=== PATIENT | female | born 1935 | race Caucasian/White ===

== ENCOUNTER 2019-07-13 14:08 | Inpatient (IN) ==
--- NOTE | 2019-07-13 14:34 | Emergency Department Note ---
Entered by Ioana Raza acting as a scribe for Nigel Farmer DO History of Present Illness General Chief complaint: Cardiac Assessment Time Seen by Provider: 07/13/19 14:16 Source: patient History of Present Illness Onset (ago): hour(s) less than 1 Location: chest (tachycardia) Severity: similar to prior episodes Pain Consistency: + other (sudden) Quality: + other (tachycardia) Associated symptoms: + shortness of breath and + other (dizziness); no chest pain and no nausea/vomiting Treatments prior to arrival: other (Lopressor, supplemental oxygen) The patient is an 84 year old female presenting to the Emergency Department complaining of sudden tachycardia starting less than an hour RN CHARGE. The patients nurse reports that the patient was at [facility] getting a colonoscopy and went into A-fib. She states that the patient doesnt have a history of A-fib. She explains that the patient was given 2.5 mg Lopressor and supplemental oxygen via nasal cannula RN CHARGE. She notes that the patient doesnt normally use supplemental oxygen at home. The patient reports that she feels fine. She states that she has experienced these symptoms once before. She notes that she follows with Dr. Fernandez PCP. The patient denies shortness of breath, nausea, vomiting and chest pain. Home Medications Home Medications Medication Instructions Recorded Confirmed Type amlodipine [Norvasc] 5 mg PO DAILY 07/13/19 07/13/19 History atorvastatin 20 mg PO DAILY 07/13/19 07/13/19 History furosemide 20 mg PO DAILY 07/13/19 07/13/19 History losartan 100 mg PO DAILY 07/13/19 07/13/19 History metoprolol succinate 100 mg PO DAILY 07/13/19 07/13/19 History polyethylene glycol 3350 17 g PO DAILY 07/13/19 07/13/19 History Allergies Allergy/AdvReac Type Severity Reaction Status Date / Time Thiazides Allergy Intermediate Rash Unverified 07/13/19 15:15 Dyazide AdvReac Unknown LETHARGY Verified 08/30/10 14:43 hydrochlorothiazide AdvReac Unknown LETHARGY Verified 07/13/19 14:56 lisinopril AdvReac Unknown COUGH Verified 07/13/19 15:15 triamterene AdvReac Unknown LETHARGY Verified 07/13/19 14:56 Past Med/Surg History Medical History Dyslipidemia Hypertension Surgical History History of appendectomy History of total left knee replacement History of total right knee replacement Hx of cholecystectomy S/P URI (total abdominal hysterectomy) S/P tonsillectomy and adenoidectomy Family History Father Diabetes Mother Colorectal cancer Social History Communication Ability: Effective Security Monitor Required: No Beliefs That Will Affect Care: None Current Living Situation: Alone Other Information That Helps Us Care for You: No Feels Safe at Home: Yes Safety Concerns: Feels Safe At This Time Smoking Status: Never smoker Do You Dip or Chew Tobacco: No ; Second Hand Exposure: No ; Tobacco Cessation Education Requested by Patient: No Hx Alcohol Use: No Hx Substance Use: No Review of Systems See HPI for pertinent positives & negatives. and A total of 10 systems reviewed and were otherwise negative Physical Exam Vital Signs Vital Signs - 24 hr 07/13/19 14:03 07/13/19 14:17 07/13/19 14:19 Temperature Temperature Source Pulse Rate 77 96 H Pulse Rate [Apical] Pulse Rate from SpO2 Sensor 103 H 98 H Pulse Rhythm Respiratory Rate 20 21 Respiratory Effort / Characteristics Non-Labored Spontaneous Respiratory Depth Normal Respiratory Pattern Blood Pressure 124/90 Blood Pressure [Right Arm] Blood Pressure Mean 108 Blood Pressure Mean [Right Arm] Blood Pressure Position [Right Arm] Pulse Oximetry 96 92 95 Oxygen Delivery Method Nasal Cannula Oxygen Flow Rate 2 Sepsis Recent Fever Within 48 Hours Sepsis New/Unexplained Change in Mental Status Sepsis Action Taken by Nursing 07/13/19 14:23 07/13/19 14:31 07/13/19 15:00 Temperature 36.6 C Temperature Source Oral Pulse Rate 98 H 95 H 101 H Pulse Rate [Apical] Pulse Rate from SpO2 Sensor 99 H 113 H Pulse Rhythm Irregular Respiratory Rate 20 21 22 Respiratory Effort / Characteristics Non-Labored Respiratory Depth Normal Respiratory Pattern Regular Blood Pressure 124/90 125/64 Blood Pressure [Right Arm] Blood Pressure Mean 101 98 Blood Pressure Mean [Right Arm] Blood Pressure Position [Right Arm] Pulse Oximetry 96 95 92 Oxygen Delivery Method Nasal Cannula Oxygen Flow Rate 2 Sepsis Recent Fever Within 48 Hours No Sepsis New/Unexplained Change in Mental Status No Sepsis Action Taken by Nursing No Action Required 07/13/19 15:17 07/13/19 15:22 07/13/19 16:00 Temperature Temperature Source Pulse Rate 87 85 Pulse Rate [Apical] 98 H Pulse Rate from SpO2 Sensor 90 Pulse Rhythm Respiratory Rate 26 H 20 18 Respiratory Effort / Characteristics Non-Labored Spontaneous Respiratory Depth Normal Respiratory Pattern Regular Blood Pressure 136/82 154/109 H Blood Pressure [Right Arm] 136/82 Blood Pressure Mean 120 133 Blood Pressure Mean [Right Arm] 100 Blood Pressure Position [Right Arm] Sitting Pulse Oximetry 92 93 Oxygen Delivery Method Room Air Oxygen Flow Rate Sepsis Recent Fever Within 48 Hours Sepsis New/Unexplained Change in Mental Status Sepsis Action Taken by Nursing 07/13/19 16:01 Temperature Temperature Source Pulse Rate 91 H Pulse Rate [Apical] Pulse Rate from SpO2 Sensor 105 H Pulse Rhythm Respiratory Rate 21 Respiratory Effort / Characteristics Respiratory Depth Respiratory Pattern Blood Pressure Blood Pressure [Right Arm] Blood Pressure Mean Blood Pressure Mean [Right Arm] Blood Pressure Position [Right Arm] Pulse Oximetry 93 Oxygen Delivery Method Room Air Oxygen Flow Rate Sepsis Recent Fever Within 48 Hours Sepsis New/Unexplained Change in Mental Status Sepsis Action Taken by Nursing GENERAL: The patient is awake and alert. She is not anxious appearing overall comfortable. EYES: The conjunctivae are clear. The pupils are round and reactive. EARS, NOSE, MOUTH AND THROAT: The nose is without any evidence of any deformity. Mucous membranes are moist. Tongue is midline. NECK: The neck is nontender and supple. RESPIRATORY: Diminished breath sounds noted at both bases. There is no tachypnea or conversational dyspnea. CARDIOVASCULAR: Irregular rhythm was noted to auscultation. There is no definite murmur noted. GASTROINTESTINAL: The abdomen is soft. Abdomen is nontender. MUSCULOSKELETAL/EXTREMITIES: There is no evidence of gross deformity full range of motion is noted in the hips and shoulders. SKIN: There is no obvious evidence of any rash. Venous stasis changes were noted in both feet. There is pedal edema bilaterally. NEUROLOGIC: Patient is awake alert and oriented x3. Course Course 1419: The patient was evaluated in room C12B, and a complete history and physical examination were performed. 1627: I updated the patient at this time. 1632: I discussed the patients case with Joanne Dickens PA-C. Dr. Dylan Herreraer hospitalist will evaluate the patient for further management. Administered Medications Heparin Sodium/Dextrose (Heparin Sodium/Dextrose) 25,000 units in 500 mls @ 27 mls/hr IV .[id number] [facility]; Protocol Stop: 08/12/19 19:59 Last Admin: 07/13/19 20:13 Dose: 1,350 units/hr, 27 mls/hr Documented by: [id number] Cosigned by: [id number] Sodium Chloride (Nss 1000ml) 1,000 mls @ 80 mls/hr IV .[id number] [facility] Stop: 07/14/19 07:29 Last Admin: 07/13/19 20:13 Dose: 80 mls/hr Documented by: [id number] Warfarin Sodium (Coumadin) 5 mg PO DAILY@1600 CORY Stop: 08/12/19 18:59 Last Admin: 07/13/19 20:15 Dose: 5 mg Documented by: [id number] Discontinued Medications Metoprolol Tartrate (Lopressor) 50 mg PO ONE ONE Stop: 07/13/19 19:01 Last Admin: 07/13/19 20:14 Dose: 50 mg Documented by: [id number] Metoprolol Tartrate (Lopressor) 5 mg IV ONE ONE Stop: 07/13/19 19:16 Last Admin: 07/13/19 20:12 Dose: Not Given Documented by: [id number] Medical Decision Making Differential Diagnosis Differential diagnosis: Etiologies such as premature contractions, electrolyte abnormality, cardiac dysrhythmia, thyroid dysfunction, pulmonary embolism, infection, gastrointestinal, as well as others were entertained. Medical Records Attestation: I reviewed the patient's medical records. Home Medications Current Medication List: was personally reviewed by me Laboratory Data Attestation: I reviewed the patient's lab results. Result diagrams: 07/13/19 15:17 07/13/19 15:17 Lab Results 07/13/19 07/13/19 07/13/19 Range/Units 15:17 15:17 15:17 WBC 8.18 (4.8-10.8) K/uL RBC 5.13 (4.2-5.4) M/uL Hgb 16.3 H (12.0-16.0) g/dL Hct 49.3 H (37-47) % MCV 96.1 (80-100) fL MCH 31.8 (25-34) pg MCHC 33.1 (32-36) g/dL RDW Std Deviation 48.5 H (36.4-46.3) fL RDW Coeff of Aaron 13.7 (11.5-14.5) % Plt Count 225 (130-400) K/uL MPV 9.9 (7.4-10.4) fL Immature Gran % (Auto) 0.1 % Neut % (Auto) 50.0 % Lymph % (Auto) 38.6 % [place] % (Auto) 9.5 % Eos % (Auto) 1.7 % Baso % (Auto) 0.1 % Immature Gran # (Auto) 0.01 (0.00-0.02) K/uL Neut # (Auto) 4.08 (1.4-6.5) K/uL Lymph # (Auto) 3.16 (1.2-3.4) K/uL [place] # (Auto) 0.78 H (0.11-0.59) K/uL Eos # (Auto) 0.14 (0-0.5) K/uL Baso # (Auto) 0.01 (0-0.2) K/uL PT 10.1 (9.0-12.0) Seconds INR 1.0 (0.9-1.1) APTT 23.8 (21.0-31.0) Seconds PTT Ratio 0.9 Sodium 142 (136-145) mmol/L Potassium 3.9 (3.5-5.1) mmol/L Chloride 109 H (98-107) mmol/L Carbon Dioxide 29 (21-32) mmol/L Anion Gap 4.0 (3-11) BUN 10 (7-18) mg/dl Creatinine 0.77 (0.6-1.2) mg/dl Est Cr Clr Drug Dosing 68.4 ml/min Est GFR ( Amer) 82.8 Est GFR (Non-Af Amer) 71.4 BUN/Creatinine Ratio 13.3 (10-20) Glucose 114 H (70-99) mg/dl Calcium 8.8 (8.5-10.1) mg/dl Magnesium 2.3 (1.8-2.4) mg/dl Total Bilirubin 0.5 (0.2-1) mg/dl AST 23 (15-37) U/L ALT 31 (12-78) U/L Alkaline Phosphatase 99 (45-117) U/L Troponin I < 0.015 (0-0.045) ng/ml Total Protein 7.9 (6.4-8.2) gm/dl Albumin 3.8 (3.4-5.0) gm/dl Globulin 4.1 H (2.5-4.0) gm/dl Albumin/Globulin Ratio 0.9 (0.9-2) TSH 3.130 (0.300-4.500) uIu/ml Imaging Data Radiologist's Impression: Radiology results as stated below per my review and the radiologist's interpretation: XR chest 1V portable CLINICAL HISTORY: weakness COMPARISON STUDY: No previous studies for comparison. FINDINGS: Moderate cardiac enlargement. Diaphragms are smooth. Lungs are clear. IMPRESSION: Cardiomegaly. Otherwise negative study. The above report was generated using voice recognition software. It may contain grammatical, syntax or spelling errors. Electronically signed by: Casey Zuñiga M.D. 07/13/2019 3:01 PM ECG Data Attestation: I personally reviewed and interpreted this ECG as follows: Indication: + tachycardia Rate (beats per minute): 97 Rhythm: + atrial fibrillation ECG ST segments: no ST depression and no ST elevation ECG Findings: no PVCs Comparison ECG Date: no prior available Blood Pressure Blood Pressure Findings: Elevated blood pressure Blood Pressure Disposition: further management by hospitalist NIKOLAS Narrative The patient is an 84-year-old female who presented to the emergency department for an evaluation palpitations. The patient had a prep for colonoscopy last evening. She had a colonoscopy today and while she was in the recovery phase started having palpitations and was found to have rapid atrial fibrillation. The patient does state that she has a history of similar episodes in the past. I discussed the patient's laboratory and radiographic studies with her. She was treated with beta-blockers prior to arrival. Her pulse rate was significantly improved. She continued to have hypoxia and was placed on submental oxygen. She did respond well to supplemental oxygen. She has no chest pain. She denies having any swelling in the extremities compared to previous. The patient was reevaluated multiple times. I discussed the patient's condition with the [facility] hospitalist group. They have agreed to evaluate the patient in the emergency department for further management disposition. Is possible the patient may require further inpatient work-up and then consideration for cardioversion. Impression & Plan Atrial fibrillation with rapid ventricular response, Hypoxia Discharge Plan Visit Data *Final* Discharge Date/Time: 07/13/19 18:25 Chief Complaint: Cardiac Assessment ED Provider: Nigel Farmer Discharge Problem: Atrial fibrillation with rapid ventricular response, Hypoxia Patient Disposition: Admitted As Inpatient Discharge Instructions Interventions: ED Discharge Assessment Last Done: 07/13/19 18:25 The scribe's documentation has been prepared under my direction and personally reviewed by me in its entirety. I confirm that the note above accurately reflects all work, treatment, procedures, and medical decision making performed by me.
--- NOTE | 2019-07-13 15:02 | XRay Report ---
XR chest 1V portable CLINICAL HISTORY: weakness COMPARISON STUDY: No previous studies for comparison. FINDINGS: Moderate cardiac enlargement. Diaphragms are smooth. Lungs are clear. IMPRESSION: Cardiomegaly. Otherwise negative study. The above report was generated using voice recognition software. It may contain grammatical, syntax or spelling errors. Electronically signed by: Casey Zuñiga M.D. 07/13/2019 3:01 PM
[2019-07-13 15:34] LABS: Basophils # (auto) 0.01 K/uL (0-0.2); Basophils % (auto) 0.1 %; Eosinophils # (auto) 0.14 K/uL (0-0.5); Eosinophils % (auto) 1.7 %; Hematocrit (blood only) 49.3 % (37-47); Hemoglobin 16.3 g/dL (12.0-16.0); Immature Granulocytes # (auto) 0.01 K/uL (0.00-0.02); Immature Granulocytes % (auto) 0.1 %; Lymphocytes # (auto) 3.16 K/uL (1.2-3.4); Lymphocytes % (auto) 38.6 %; Mean Corpuscular Hemoglobin 31.8 pg (25-34); Mean Corpuscular Hgb Conc 33.1 g/dL (32-36); Mean Corpuscular Volume 96.1 fL (80-100); Mean Platelet Volume 9.9 fL (7.4-10.4); Monocytes # (auto) 0.78 K/uL (0.11-0.59); Monocytes % (auto) 9.5 %; Neutrophils # (auto) 4.08 K/uL (1.4-6.5); Platelet Count 225 K/uL (130-400); RDW Coefficient of Variation 13.7 % (11.5-14.5); RDW Standard Deviation 48.5 fL (36.4-46.3); Red Blood Count 5.13 M/uL (4.2-5.4); White Blood Count 8.18 K/uL (4.8-10.8)
[2019-07-13 15:51] LABS: Partial Thromboplastin Ratio 0.9; Partial Thromboplastin Time 23.8 Seconds (21.0-31.0); Prothrombin Time 10.1 Seconds (9.0-12.0)
[2019-07-13 15:55] LABS: Alanine Aminotransferase 31 U/L (12-78); Albumin Level 3.8 gm/dl (3.4-5.0); Aspartate Aminotransferase 23 U/L (15-37); BUN Creatinine Ratio 13.3 (10-20); Blood Urea Nitrogen 10 mg/dl (7-18); Calcium 8.8 mg/dl (8.5-10.1); Carbon Dioxide 29 mmol/L (21-32); Chloride 109 mmol/L (98-107); Creatinine Clr Calc Pharmacy 68.4 ml/min; Est GFR (African American) 82.8; Est GFR (Non-African American) 71.4; Glucose 114 mg/dl (70-99); Magnesium 2.3 mg/dl (1.8-2.4); Potassium 3.9 mmol/L (3.5-5.1); Sodium 142 mmol/L (136-145)
[2019-07-13 16:06] LABS: Albumin Globulin Ratio 0.9 (0.9-2); Alkaline Phosphatase 99 U/L (45-117); Bilirubin,Total 0.5 mg/dl (0.2-1); Globulin 4.1 gm/dl (2.5-4.0); Total Protein 7.9 gm/dl (6.4-8.2); Troponin I < 0.015 ng/ml (0-0.045)
--- NOTE | 2019-07-13 17:59 | History & Physical Report ---
Date of Service July 13, 2019 Assessment & Plan (1) New onset atrial fibrillation: -Admit to telemetry -Patient sent to the ED from [facility] endoscopy clinic for evaluation of atrial fibrillation with RVR that developed during routine colonoscopy -Patient received metoprolol 2.5 mg IV with improvement in heart rate; heart rate currently 90s to low 100s -A. fib may have been triggered by some mild dehydration from colonoscopy prep (will hold home Lasix and give gentle IVF) or anesthesia -At home, patient takes metoprolol succinate 100 mg daily (has not missed any doses); will give an additional 50 mg tonight and start 75 mg twice daily tomorrow -[id number] score 4; will start IV heparin with Coumadin bridge -Serial cardiac enzymes, resting echo -Cardiology consult (2) Hypertension: -BP controlled -Metoprolol changes as above -Continue losartan and amlodipine (3) Dyslipidemia: -Continue statin (4) DVT prophylaxis: -On IV heparin with Coumadin bridge History of Present Illness Chief Complaint: Atrial fibrillation Primary Care Provider: Demetrice Fernandez MD 84-year-old female who was sent to the ED from [facility] endoscopy clinic for evaluation of atrial fibrillation that developed during routine colonoscopy today. During colonoscopy, patient developed atrial fibrillation with RVR. She was asymptomatic. She received metoprolol 2.5 mg IV with improvement in heart rate. Patient was then sent to the ER for further evaluation via EMS. Patient currently reports she is feeling well. Denies any other recent illnesses, fevers, chills. No chest pain or palpitations. Denies shortness of breath. No lightheadedness, dizziness, diaphoresis, syncopal events. No abdominal pain, nausea, vomiting, diarrhea. She denies any urinary symptoms. In the ED, patient remains in atrial fibrillation with heart rates in the 90s to low 100s. Labs are unremarkable. Allergies Allergy/AdvReac Type Severity Reaction Status Date / Time Thiazides Allergy Intermediate Rash Unverified 07/13/19 15:15 Dyazide AdvReac Unknown LETHARGY Verified 08/30/10 14:43 hydrochlorothiazide AdvReac Unknown LETHARGY Verified 07/13/19 14:56 lisinopril AdvReac Unknown COUGH Verified 07/13/19 15:15 triamterene AdvReac Unknown LETHARGY Verified 07/13/19 14:56 Home Medications Home Medications Medication Instructions Recorded Confirmed Type amlodipine [Norvasc] 5 mg PO DAILY 07/13/19 07/13/19 History atorvastatin 20 mg PO DAILY 07/13/19 07/13/19 History furosemide 20 mg PO DAILY 07/13/19 07/13/19 History losartan 100 mg PO DAILY 07/13/19 07/13/19 History metoprolol succinate 100 mg PO DAILY 07/13/19 07/13/19 History polyethylene glycol 3350 17 g PO DAILY 07/13/19 07/13/19 History Past Med/Surg History Medical History Dyslipidemia Hypertension Surgical History History of appendectomy History of total left knee replacement History of total right knee replacement Hx of cholecystectomy S/P URI (total abdominal hysterectomy) S/P tonsillectomy and adenoidectomy Family History Father Diabetes Mother Colorectal cancer Social History Feels Safe at Home: Yes Smoking Status: Never smoker Hx Alcohol Use: No Review of Systems Review of Systems: ROS per HPI, all other systems reviewed and negative Physical Exam Constitutional: WD/WN, vitals as above Eyes: PERRL, conjunctivae normal, anicteric sclerae ENMT: external ear and nose normal, oropharynx normal Respiratory: normal respiratory effort, lungs clear to auscultation Cardiovascular: Rate/Rhythm: regular rate and + irregularly irregular Vessels: normal peripheral pulses Extremities: no edema Gastrointestinal (Abdomen): normal bowel sounds, soft, nontender, no hepatosplenomegaly Musculoskeletal: no cyanosis or clubbing, extremities motor strength 5/5 Skin: no rashes, warm and dry Neurologic: PERRL, EOMI, accommodation nl, no face palsy, no dysarthria Psychiatric: A+Ox3, euthymic affect Results & Data Vital Signs (Past 12 Hours) Vital Signs Temp Pulse Pulse Resp BP BP Pulse Ox 07/13/19 17:01 105 H 20 124/96 95 07/13/19 16:01 91 H 21 82 L 07/13/19 16:00 85 18 154/109 H 93 07/13/19 15:22 98 H 20 136/82 92 07/13/19 15:17 87 26 H 136/82 07/13/19 15:00 101 H 22 92 07/13/19 14:31 95 H 21 125/64 95 07/13/19 14:23 36.6 C 98 H 20 124/90 96 07/13/19 14:19 96 H 21 95 07/13/19 14:17 77 20 124/90 92 07/13/19 14:03 96 Laboratory Results Short CBC 07/13/19 Range/Units 15:17 WBC 8.18 (4.8-10.8) K/uL Hgb 16.3 H (12.0-16.0) g/dL Hct 49.3 H (37-47) % Plt Count 225 (130-400) K/uL BMP 07/13/19 15:17 Sodium 142 Potassium 3.9 Chloride 109 H Carbon Dioxide 29 BUN 10 Creatinine 0.77 Glucose 114 H Calcium 8.8 Cardiac Enzymes 07/13/19 Range/Units 15:17 Troponin I < 0.015 (0-0.045) ng/ml Liver Function 07/13/19 Range/Units 15:17 Total Bilirubin 0.5 (0.2-1) mg/dl AST 23 (15-37) U/L ALT 31 (12-78) U/L Alkaline Phosphatase 99 (45-117) U/L Albumin 3.8 (3.4-5.0) gm/dl Diagnostic Findings CXR IMPRESSION: Cardiomegaly. Otherwise negative study. Code Status & VTE Plan Code Status Patient is a full code without invasive airway as per my discussion with her. VTE Prophylaxis Plan VTE Prophylaxis will be ordered: Yes Supervising Physician Co-Signing Physician Notes I saw this patient with the Nurse Practitioner, I participated in the history, physical, review of systems, and physical exam. I reviewed the medications with the patient and the Nurse Practitioner and helped reconcile the medications. I helped take a detailed family and social history as well. I formulated the asse ssment and plan personally with the Nurse Practitioner went over it with the patient. ROS-No Headache, No Visual Changes, No Nausea, No Vomiting, No Fever, No Chills, No Neck Pain or Stiffness, No Chest Pain, No Palpitations, No SOB, No PONCE, No Cough, No Sputum, No Wheezing, No Abdominal Pain, No Diarrhea, No Hematemesis, No Hemoptysis, No Unexpected Weight Loss, No Flank pain, No Melena, No Hematochezia, No Frequency, No Urgency, No Burning, No Hematuria, No Rashes, No Diaphoresis. Appetite is Normal Physical Exam Gen-AAO x 3, NAD, Afebrile, obese Head-NCAT, EOMI, PERRLA, Anicteric Sclera, No Posterior Pharyngeal Erythema Neck-Supple, No JVD, No Thyromegaly, No Masses, No LAD, No Bruits Lungs-Clear to Auscultation Bilaterally, No Rales, No Rhonchi, No Wheezing, No Crepitus Chest-Irreg/Irreg, No S4, +S1, +S2, No S3, No Murmurs, No Rubs, No Gallops, + Ectopy Abdomen-Soft, Bowel Sounds Present, Non Tender, Non Distended, No Hepatomegaly, No Splenomegaly, No Palpable Masses, No Rebound, No Rigidity, No Guarding Musculoskeletal-Full Range of Motion Bilaterally, No CVAT Extremities-No Cyanosis, No Clubbing, No Edema Nuero-Cranial Nerves II-XII grossly intact, Motor WNL, DTRs WNL, Strength WNL, Non Focal Psych-Normal Mood
[2019-07-13] MEDS ORDERED: ACETAMINOPHEN 325 MG TAB PO PRN (18:45)
[2019-07-13] MEDS ORDERED: METOPROLOL TARTRATE 1 MG/ML VIAL IV PRN (18:45)
[2019-07-13] MEDS ORDERED: SODIUM CHLORIDE 0.9% 1000ML 1,000 ML IV SCH (19:00)
[2019-07-13] MEDS ORDERED: Heparin IV Standard *NO* Bolus IV SCH (19:00)
[2019-07-13] MEDS ORDERED: METOPROLOL TARTRATE 50 MG TAB PO ONE (19:00)
[2019-07-13] MEDS ORDERED: METOPROLOL TARTRATE 1 MG/ML VIAL IV ONE (19:15)
[2019-07-13] MEDS: HEPARIN SODIUM/DEXTROSE 25,000 UNITS/500 ML BAG IV SCH (20:13)
[2019-07-13] MEDS: WARFARIN SOD 5 MG TAB PO SCH (20:15)
[2019-07-14 02:34] LABS: Hematocrit (blood only) 43.8 % (37-47); Mean Corpuscular Hemoglobin 31.3 pg (25-34); Mean Corpuscular Volume 97.8 fL (80-100); Mean Platelet Volume 9.7 fL (7.4-10.4); Platelet Count 192 K/uL (130-400); RDW Coefficient of Variation 13.8 % (11.5-14.5); RDW Standard Deviation 49.8 fL (36.4-46.3); Red Blood Count 4.48 M/uL (4.2-5.4); White Blood Count 7.27 K/uL (4.8-10.8)
[2019-07-14 02:47] LABS: Partial Thromboplastin Ratio 1.6; Partial Thromboplastin Time 43.8 Seconds (21.0-31.0); Prothrombin Time 10.6 Seconds (9.0-12.0)
[2019-07-14 02:52] LABS: Anion Gap 0 (3-11); BUN Creatinine Ratio 14.4 (10-20); Blood Urea Nitrogen 13 mg/dl (7-18); Calcium 8.3 mg/dl (8.5-10.1); Carbon Dioxide 33 mmol/L (21-32); Chloride 109 mmol/L (98-107); Creatinine Clr Calc Pharmacy 55.7 ml/min; Est GFR (African American) 66.7; Est GFR (Non-African American) 57.6; Glucose 100 mg/dl (70-99); Potassium 4.1 mmol/L (3.5-5.1); Sodium 142 mmol/L (136-145)
[2019-07-14 02:56] LABS: Troponin I < 0.015 ng/ml (0-0.045)
[2019-07-14] MEDS ORDERED: HEPARIN IV BOLUS 3,000 UNITS in SYRINGE 0 ML IV ONE (03:17)
[2019-07-14] MEDS: AMLODIPINE BESYLATE 5 MG TAB PO SCH (08:01)
[2019-07-14] MEDS: LOSARTAN POTASSIUM 50 MG TAB PO SCH (08:01)
[2019-07-14] MEDS: ATORVASTATIN 20 MG TAB PO SCH (08:01)
[2019-07-14] MEDS ORDERED: PERFLUTREN LIPID MICROSPHERE (DEFINITY) IV ONE (08:04)
[2019-07-14] MEDS ORDERED: METOPROLOL TARTRATE 25 MG TAB PO SCH (09:00)
--- NOTE | 2019-07-14 10:46 | Hospitalist Progress Note ---
Date of Service July 14, 2019 Assessment & Plan (1) New onset atrial fibrillation: -Back in NSR -Patient sent to the ED from [facility] endoscopy clinic for evaluation of atrial fibrillation with RVR that developed during routine colonoscopy -Patient received metoprolol 2.5 mg IV with improvement in heart rate; heart rate currently 90s to low 100s -A. fib may have been triggered by some mild dehydration from colonoscopy prep (will hold home Lasix and give gentle IVF) or anesthesia -At home, patient takes metoprolol succinate 100 mg daily (has not missed any doses); will give an additional 50 mg tonight and start 75 mg twice daily tomorrow -[id number] score 4; will start IV heparin with Coumadin bridge -Serial cardiac enzymes, resting echo -Cardiology consult pending, likely DC later today (2) Hypertension: -BP controlled -Metoprolol changes as above -Continue losartan and amlodipine (3) Dyslipidemia: -Continue statin (4) DVT prophylaxis: On IV heparin with Coumadin bridge ROS-No Headache, No Visual Changes, No Nausea, No Vomiting, No Fever, No Chills, No Neck Pain or Stiffness, No Chest Pain, No Palpitations, No SOB, No PONCE, No Cough, No Sputum, No Wheezing, No Abdominal Pain, No Diarrhea, No Hematemesis, No Hemoptysis, No Unexpected Weight Loss, No Flank pain, No Melena, No Hematochezia, No Frequency, No Urgency, No Burning, No Hematuria, No Rashes, No Diaphoresis. Appetite is Normal Physical Exam Gen-AAO x 3, NAD, Afebrile Head-NCAT, EOMI, PERRLA, Anicteric Sclera, No Posterior Pharyngeal Erythema Neck-Supple, No JVD, No Thyromegaly, No Masses, No LAD, No Bruits Lungs-Clear to Auscultation Bilaterally, No Rales, No Rhonchi, No Wheezing, No Crepitus Chest-No S4, +S1, +S2, No S3, No Murmurs, No Rubs, No Gallops, No Ectopy Abdomen-Soft, Bowel Sounds Present, Non Tender, Non Distended, No Hepatomegaly, No Splenomegaly, No Palpable Masses, No Rebound, No Rigidity, No Guarding Musculoskeletal-Full Range of Motion Bilaterally, No CVAT Extremities-No Cyanosis, No Clubbing, No Edema Nuero-Cranial Nerves II-XII grossly intact, Motor WNL, DTRs WNL, Strength WNL, Non Focal Psych-Normal Mood Results & Data Vital Signs (Past 12 Hours) Vital Signs Temp Pulse Pulse Pulse Resp BP Pulse Ox 07/14/19 08:03 94 07/14/19 07:50 36.7 C 53 L 18 142/65 H 85 L 07/14/19 04:36 37.3 C 99 H 20 127/77 96 07/13/19 23:45 103 H
[2019-07-14 10:51] LABS: Partial Thromboplastin Ratio 2.8
[2019-07-14 10:55] LABS: Partial Thromboplastin Time 75.8 Seconds (21.0-31.0)
[2019-07-14 11:25] LABS: Appearance Urine Cloudy (Clear); Bacteria Urine Automated Negative (Negative); Bilirubin Urine Negative (Negative); Blood Urine Negative (Negative); Color Urine Dark Yellow; Epithelial Cell Urine Auto >30 /lpf (0-5); Glucose Urine UA Negative (Negative); Ketones Urine Negative (Negative); Leukocyte Esterase Urine Negative (Negative); Nitrite Urine Negative (Negative); Protein Urine Negative (Negative); RBC Urine Automated 0-4 /hpf (0-4); Urobilinogen Urine Negative (Negative)
--- NOTE | 2019-07-14 11:49 | Cardiology Consultation ---
Date of Consultation July 14, 2019 History of Present Illness Attending Physician: Jc Whelan DO Allergies Allergy/AdvReac Type Severity Reaction Status Date / Time Thiazides Allergy Intermediate Rash Unverified 07/13/19 15:15 Dyazide AdvReac Unknown LETHARGY Verified 08/30/10 14:43 hydrochlorothiazide AdvReac Unknown LETHARGY Verified 07/13/19 14:56 lisinopril AdvReac Unknown COUGH Verified 07/13/19 15:15 triamterene AdvReac Unknown LETHARGY Verified 07/13/19 14:56 Home Medications Home Medications Medication Instructions Recorded Confirmed Type amlodipine [Norvasc] 5 mg PO DAILY 07/13/19 07/13/19 History atorvastatin 20 mg PO DAILY 07/13/19 07/13/19 History furosemide 20 mg PO DAILY 07/13/19 07/13/19 History losartan 100 mg PO DAILY 07/13/19 07/13/19 History metoprolol succinate 100 mg PO DAILY 07/13/19 07/13/19 History polyethylene glycol 3350 17 g PO DAILY 07/13/19 07/13/19 History Patient History Medical History Dyslipidemia Hypertension Surgical History History of appendectomy History of total left knee replacement History of total right knee replacement Hx of cholecystectomy S/P URI (total abdominal hysterectomy) S/P tonsillectomy and adenoidectomy Family History Father Diabetes Mother Colorectal cancer Social History Communication Ability: Effective 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
[2019-07-14] MEDS: HEPARIN SODIUM/DEXTROSE 25,000 UNITS/500 ML BAG IV SCH (13:46)
--- NOTE | 2019-07-14 15:13 | Cardiology Consultation ---
Date of Consultation July 14, 2019 Assessment & Plan (1) New onset atrial fibrillation: Patient presented with new onset atrial fibrillation occurring during recent outpatient procedure following colonoscopy prep. Patient relatively asymptomatic not aware of tachycardia palpitation or associated complaints. Notes no prior history of arrhythmias per her description she does carry an elevated chads vas 2 score of at least 4. Patient spontaneously converted to sinus rhythm earlier this morning after additional dosing of beta-bhargav lower with associated significant sinus pauses greater than 6 seconds Recommendations continue IV heparin with elevated chads vas 2 score will require chronic anticoagulation either warfarin or Eliquis Hold beta-bhargav with likely resumption in a.m. Maintain telemetry additional overnight (2) Hypertension: (3) Sinus pause: Likely secondary to additional beta-blockers and postconversion pause however pauses lengths concerning. Maintain telemetry overnight History of Present Illness Reason for Consultation: Atrial fibrillation with with postconversion pause Requesting Physician: Dr. Bedolla Attending Physician: Jc Whelan, DO History of Present Illness Patient is an 84-year-old female without prior established cardiac history per patient who is underlying medical problems include 1. Hypertension 2. Hyperlipidemia on therapy 3. Borderline hyperglycemia Patient presents having undergone colonoscopy yesterday for routine surveillance and having lapsed into atrial fibrillation during the procedure. She received additional doses of IV metoprolol 2.5 mg as well as oral dosing last night of 50 mg of metoprolol tartrate. Patient uses takes it metoprolol succinate 100 mg every morning and was compliant with her dosing prior to her colonoscopy. This morning early patient spontaneously converted to sinus rhythm however postconversion had a significant pause of greater than 6 seconds. Patient is referred now for further evaluation. Currently notes no acute complaints denies prior history of tachyarrhythmias palpitations TIA or stroke. Notes no bleeding difficulties melena medication dysuria hematuria. Blood pressures are usually well controlled. Denies chest pain shortness of breath orthopnea PND peripheral edema. No prior history of syncope or lightheadedness. Is active to a modest level about her home without specific limitation. Allergies Allergy/AdvReac Type Severity Reaction Status Date / Time Thiazides Allergy Intermediate Rash Unverified 07/13/19 15:15 Dyazide AdvReac Unknown LETHARGY Verified 08/30/10 14:43 hydrochlorothiazide AdvReac Unknown LETHARGY Verified 07/13/19 14:56 lisinopril AdvReac Unknown COUGH Verified 07/13/19 15:15 triamterene AdvReac Unknown LETHARGY Verified 07/13/19 14:56 Home Medications Home Medications Medication Instructions Recorded Confirmed Type amlodipine [Norvasc] 5 mg PO DAILY 07/13/19 07/13/19 History atorvastatin 20 mg PO DAILY 07/13/19 07/13/19 History furosemide 20 mg PO DAILY 07/13/19 07/13/19 History losartan 100 mg PO DAILY 07/13/19 07/13/19 History metoprolol succinate 100 mg PO DAILY 07/13/19 07/13/19 History polyethylene glycol 3350 17 g PO DAILY 07/13/19 07/13/19 History Patient History Medical History Dyslipidemia Hypertension Surgical History History of appendectomy History of total left knee replacement History of total right knee replacement Hx of cholecystectomy S/P URI (total abdominal hysterectomy) S/P tonsillectomy and adenoidectomy Family History Father Diabetes Mother Colorectal cancer Social History Communication Ability: Effective 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 Beliefs That Will Affect Care: None Current Living Situation: Alone Other Information That Helps Us Care for You: No Feels Safe at Home: Yes Safety Concerns: Feels Safe At This Time Smoking Status: Never smoker Do You Dip or Chew Tobacco: No ; Second Hand Exposure: No ; Tobacco Cessation Education Requested by Patient: No Hx Alcohol Use: No Hx Substance Use: No Review of Systems Review of Systems: All systems reviewed & are unremarkable except as noted in HPI & below Physical Exam Constitutional: WD/WN, vitals as above + obese Eyes: PERRL, conjunctivae normal, anicteric sclerae ENMT: external ear and nose normal, oropharynx normal Neck: trachea midline, no thyromegaly Respiratory: normal respiratory effort, lungs clear to auscultation Cardiovascular: Rate/Rhythm: regular rate and regular rhythm Heart Sounds: normal S1 and normal S2; no gallop and no murmur Palpation: normal PMI Vessels: normal carotid upstroke and radial pulses present; no JVD and no carotid bruit Extremities: no edema Gastrointestinal (Abdomen): normal bowel sounds, soft, nontender, no hepatosplenomegaly Musculoskeletal: no cyanosis or clubbing, extremities motor strength 5/5 Mild stasis changes lower extremity Skin: no rashes, warm and dry Neurologic: PERRL, EOMI, accommodation nl, no face palsy, no dysarthria Psychiatric: A+Ox3, euthymic affect Results & Data Vital Signs (Past 12 Hours) Vital Signs Temp Pulse Pulse Resp BP Pulse Ox 07/14/19 11:39 37.0 C 69 18 138/69 93 07/14/19 08:03 94 07/14/19 07:50 36.7 C 53 L 18 142/65 H 85 L 07/14/19 04:36 37.3 C 99 H 20 127/77 96
[2019-07-14] MEDS: WARFARIN SOD 5 MG TAB PO SCH (16:52)
[2019-07-14 18:52] LABS: Partial Thromboplastin Ratio 2.4
[2019-07-14 19:03] LABS: Partial Thromboplastin Time 63.9 Seconds (21.0-31.0)
[2019-07-15 06:29] LABS: Partial Thromboplastin Ratio 1.8
[2019-07-15 06:32] LABS: Partial Thromboplastin Time 50.1 Seconds (21.0-31.0)
[2019-07-15] MEDS: HEPARIN SODIUM/DEXTROSE 25,000 UNITS/500 ML BAG IV SCH (08:40)
[2019-07-15] MEDS: ATORVASTATIN 20 MG TAB PO SCH (08:59)
[2019-07-15] MEDS: AMLODIPINE BESYLATE 5 MG TAB PO SCH (08:59)
[2019-07-15] MEDS: LOSARTAN POTASSIUM 50 MG TAB PO SCH (09:00)
--- NOTE | 2019-07-15 10:38 | Hospitalist Progress Note ---
Date of Service July 15, 2019 Assessment & Plan (1) New onset atrial fibrillation: -Back in NSR -Patient sent to the ED from [facility] endoscopy clinic for evaluation of atrial fibrillation with RVR that developed during routine colonoscopy -Patient received metoprolol 2.5 mg IV with improvement in heart rate; heart rate currently 90s to low 100s -A. fib may have been triggered by some mild dehydration from colonoscopy prep (will hold home Lasix and give gentle IVF) or anesthesia -At home, patient takes metoprolol succinate 100 mg daily (has not missed any doses); will give an additional 50 mg tonight and start 75 mg twice daily tomorrow -[id number] score 4; will start IV heparin with Coumadin bridge -Serial cardiac enzymes, resting echo -Cardiology on case, likely DC later today or tomorrow (2) Hypertension: -BP controlled -Metoprolol -Continue losartan and amlodipine (3) Dyslipidemia: -Continue statin (4) DVT prophylaxis: On IV heparin with Coumadin bridge ROS-No Headache, No Visual Changes, No Nausea, No Vomiting, No Fever, No Chills, No Neck Pain or Stiffness, No Chest Pain, No Palpitations, No SOB, No PONCE, No Cough, No Sputum, No Wheezing, No Abdominal Pain, No Diarrhea, No Hematemesis, No Hemoptysis, No Unexpected Weight Loss, No Flank pain, No Melena, No Hematochezia, No Frequency, No Urgency, No Burning, No Hematuria, No Rashes, No Diaphoresis. Appetite is Normal Physical Exam Gen-AAO x 3, NAD, Afebrile Head-NCAT, EOMI, PERRLA, Anicteric Sclera, No Posterior Pharyngeal Erythema Neck-Supple, No JVD, No Thyromegaly, No Masses, No LAD, No Bruits Lungs-Clear to Auscultation Bilaterally, No Rales, No Rhonchi, No Wheezing, No Crepitus Chest-No S4, +S1, +S2, No S3, No Murmurs, No Rubs, No Gallops, No Ectopy Abdomen-Soft, Bowel Sounds Present, Non Tender, Non Distended, No Hepatomegaly, No Splenomegaly, No Palpable Masses, No Rebound, No Rigidity, No Guarding Musculoskeletal-Full Range of Motion Bilaterally, No CVAT Extremities-No Cyanosis, No Clubbing, No Edema Nuero-Cranial Nerves II-XII grossly intact, Motor WNL, DTRs WNL, Strength WNL, Non Focal Psych-Normal Mood Results & Data Vital Signs (Past 12 Hours) Vital Signs Temp Pulse Pulse Resp BP Pulse Ox 07/15/19 07:34 36.6 C 93 H 20 150/76 H 85 L 07/15/19 07:00 84 07/15/19 03:46 37.6 C H 89 20 153/77 H 95 07/15/19 00:15 86 07/14/19 23:44 37.5 C 84 20 139/68 90
--- NOTE | 2019-07-15 12:39 | Discharge Summary ---
Date of Service July 15, 2019 Admission HPI Per Admitting Provider 84-year-old female who was sent to the ED from [facility] endoscopy clinic for evaluation of atrial fibrillation that developed during routine colonoscopy today. During colonoscopy, patient developed atrial fibrillation with RVR. She was asymptomatic. She received metoprolol 2.5 mg IV with improvement in heart rate. Patient was then sent to the ER for further evaluation via EMS. Patient currently reports she is feeling well. Denies any other recent illnesses, fevers, chills. No chest pain or palpitations. Denies shortness of breath. No lightheadedness, dizziness, diaphoresis, syncopal even ts. No abdominal pain, nausea, vomiting, diarrhea. She denies any urinary symptoms. In the ED, patient remains in atrial fibrillation with heart rates in the 90s to low 100s. Labs are unremarkable. Admission Exam Per Admitting Provider Gen-AAO x 3, NAD, Afebrile Head-NCAT, EOMI, PERRLA, Anicteric Sclera, No Posterior Pharyngeal Erythema Neck-Supple, No JVD, No Thyromegaly, No Masses, No LAD, No Bruits Lungs-Clear to Auscultation Bilaterally, No Rales, No Rhonchi, No Wheezing, No Crepitus Chest-Irreg/Irreg, No S4, +S1, +S2, No S3, No Murmurs, No Rubs, No Gallops Abdomen-Soft, Bowel Sounds Present, Non Tender, Non Distended, No Hepatomegaly, No Splenomegaly, No Palpable Masses, No Rebound, No Rigidity, No Guarding Musculoskeletal-Full Range of Motion Bilaterally, No CVAT Extremities-No Cyanosis, No Clubbing, No Edema Nuero-Cranial Nerves II-XII grossly intact, Motor WNL, DTRs WNL, Strength WNL, Non Focal Psych-Normal Mood Principal Diagnosis (1) New onset atrial fibrillation: (2) Hypertension: (3) Dyslipidemia: Discharge Exam Gen-AAO x 3, NAD, Afebrile Head-NCAT, EOMI, PERRLA, Anicteric Sclera, No Posterior Pharyngeal Erythema Neck-Supple, No JVD, No Thyromegaly, No Masses, No LAD, No Bruits Lungs-Clear to Auscultation Bilaterally, No Rales, No Rhonchi, No Wheezing, No Crepitus Chest-No S4, +S1, +S2, No S3, No Murmurs, No Rubs, No Gallops, No Ectopy Abdomen-Soft, Bowel Sounds Present, Non Tender, Non Distended, No Hepatomegaly, No Splenomegaly, No Palpable Masses, No Rebound, No Rigidity, No Guarding Musculoskeletal-Full Range of Motion Bilaterally, No CVAT Extremities-No Cyanosis, No Clubbing, No Edema Nuero-Cranial Nerves II-XII grossly intact, Motor WNL, DTRs WNL, Strength WNL, Non Focal Psych-Normal Mood Discharge Data Allergies Allergy/AdvReac Type Severity Reaction Status Date / Time Thiazides Allergy Intermediate Rash Unverified 07/13/19 15:15 Dyazide AdvReac Unknown LETHARGY Verified 08/30/10 14:43 hydrochlorothiazide AdvReac Unknown LETHARGY Verified 07/13/19 14:56 lisinopril AdvReac Unknown COUGH Verified 07/13/19 15:15 triamterene AdvReac Unknown LETHARGY Verified 07/13/19 14:56 Consultations 07/13/19 16:33 ED Decision to Admit Stat 07/13/19 18:45 Consult Cardiology Routine Consult Case Management - Discharge Planning Routine 07/14/19 17:20 Consult Case Management - Discharge Planning Routine Current Diagnoses Hyperlipidemia, unspecified (07/13/19) Essential (primary) hypertension (07/13/19) Other specified heart block (07/13/19) Unspecified atrial fibrillation (07/13/19) Encounter for prophylactic measures, unspecified (07/13/19) Allergies Thiazides Allergy (Intermediate, Unverified 07/13/19 15:15) Rash Dyazide Adverse Reaction (Unknown, Verified 08/30/10 14:43) LETHARGY hydrochlorothiazide Adverse Reaction (Unknown, Verified 07/13/19 14:56) LETHARGY lisinopril Adverse Reaction (Unknown, Verified 07/13/19 15:15) COUGH triamterene Adverse Reaction (Unknown, Verified 07/13/19 14:56) LETHARGY Height/Weight/Isolation Height 5 ft 5 in Weight 107.1 kg Chemistry 07/13/19 07/14/19 15:17 02:23 Sodium 142 142 Potassium 3.9 4.1 Chloride 109 H 109 H Carbon Dioxide 29 33 H Anion Gap 4.0 0 L BUN 10 13 Creatinine 0.77 0.92 Glucose 114 H 100 H Urinalysis 07/14/19 Unknown Urine Color Dark Yellow Urine Appearance Cloudy A Urine pH 5.0 Ur Specific [place] 1.020 Urine Protein Negative Urine Glucose (UA) Negative Urine Ketones Negative Urine Blood Negative Urine Nitrite Negative Urine Bilirubin Negative Hospital Course (1) New onset atrial fibrillation: -Back in NSR -Patient sent to the ED from [facility] endoscopy clinic for evaluation of atrial fibrillation with RVR that developed during routine colonoscopy -Patient received metoprolol 2.5 mg IV with improvement in heart rate; heart rat e currently 90s to low 100s -A. fib may have been triggered by some mild dehydration from colonoscopy prep (will hold home Lasix and give gentle IVF) or anesthesia -At home, patient takes metoprolol succinate 100 mg daily (has not missed any doses); will give an additional 50 mg tonight and start 75 mg twice daily tomorrow -[id number] score 4; will start IV heparin with Coumadin bridge -Serial cardiac enzymes, resting echo -Cardiology on case, likely DC today-Warfarin Clinic (2) Hypertension: -BP controlled -Metoprolol -Continue losartan and amlodipine (3) Dyslipidemia: -Continue statin (4) DVT prophylaxis: DC IV heparin with Coumadin at home ROS-No Headache, No Visual Changes, No Nausea, No Vomiting, No Fever, No Chills, No Neck Pain or Stiffness, No Chest Pain, No Palpitations, No SOB, No PONCE, No Cough, No Sputum, No Wheezing, No Abdominal Pain, No Diarrhea, No Hematemesis, No Hemoptysis, No Unexpected Weight Loss, No Flank pain, No Melena, No Hematochezia, No Frequency, No Urgency, No Burning, No Hematuria, No Rashes, No Diaphoresis. Appetite is Normal Physical Exam Gen-AAO x 3, NAD, Afebrile Head-NCAT, EOMI, PERRLA, Anicteric Sclera, No Posterior Pharyngeal Erythema Neck-Supple, No JVD, No Thyromegaly, No Masses, No LAD, No Bruits Lungs-Clear to Auscultation Bilaterally, No Rales, No Rhonchi, No Wheezing, No C repitus Chest-No S4, +S1, +S2, No S3, No Murmurs, No Rubs, No Gallops, No Ectopy Abdomen-Soft, Bowel Sounds Present, Non Tender, Non Distended, No Hepatomegaly, No Splenomegaly, No Palpable Masses, No Rebound, No Rigidity, No Guarding Musculoskeletal-Full Range of Motion Bilaterally, No CVAT Extremities-No Cyanosis, No Clubbing, No Edema Nuero-Cranial Nerves II-XII grossly intact, Motor WNL, DTRs WNL, Strength WNL, Non Focal Psych-Normal Mood Total Time Total Time Spent Total Time Spent (In Minutes): 40 mins Total Time Includes: Examination of the Patient, Discharge Planning, Medication Reconciliation and Communication With Other Providers Discharge Plan Discharge Items Patient Disposition: Home - Self-Care Reason For Visit: AFIB Discharge Diagnosis: (1) New onset atrial fibrillation: (2) Hypertension: (3) Dyslipidemia Condition on Discharge: Good Activity: Resume your previous activity Lifting: None Bathing: No limitations Exercise/Sports: None Driving/Machine Use: None Weightbearing: Full weightbearing Non-emergency contact: Primary Care Provider and Rebar Worker Call non-emergency contact if: you have any medication questions Follow-up/Referrals: Epi Perdomo DO [Rebar Worker] - (2-3 weeks) Demetrice Fernandez MD [Primary Care Provider] - Diet: Heart Healthy Addtl Attending Provider Instructions: Follow up in Coumadin Clinic Pending Studies at Discharge: No Stand-Alone Forms: My [facility], Smoking Cessation Medications and DC Order Prescriptions: New warfarin 2 mg tablet 2 mg PO DAILY Qty: 90 RF: 0 metoprolol tartrate 25 mg Tablet 75 mg PO BID Qty: 120 RF: 0 Continued atorvastatin 20 mg tablet 20 mg PO DAILY RF: 0 amlodipine [Norvasc] 5 mg tablet 5 mg PO DAILY RF: 0 furosemide 20 mg tablet 20 mg PO DAILY RF: 0 polyethylene glycol 3350 17 gram/dose powder 17 g PO DAILY RF: 0 losartan 100 mg tablet 100 mg PO DAILY RF: 0 Discontinued metoprolol succinate 100 mg tablet extended release 24 hr 100 mg PO DAILY RF: 0 Discharge Orders: Discharge Order (Routine); Ordered 07/15/19 Ordered By: Jc Whelan Admission Data Admit Date/Time: 07/13/19 16:58 Attending Provider: Jc Whelan Admit Provider: Jc Whelan Primary Care Provider: Demetrice Fernandez Other Providers: Esau Aguilar ; Epi Perdomo
--- NOTE | 2019-07-15 15:59 | Cardiology Progress Note ---
Date of Service July 15, 2019 Assessment & Plan (1) New onset atrial fibrillation: Patient presented with new onset atrial fibrillation occurring during recent outpatient procedure following colonoscopy prep. Patient relatively asymptomatic not aware of tachycardia palpitation or associated complaints. Notes no prior history of arrhythmias per her description she does carry an elevated chads vas 2 score of at least 4. Patient spontaneously converted to sinus rhythm earlier this morning after additional dosing of beta-bhargav lower with associated significant sinus pauses greater than 6 seconds Patient lapsed again the atrial fibrillation this afternoon off beta-blockers with elevated ventricular response rate Recommendations: Resume Toprol-XL 25 mg now and 25 mg later this evening Continue IV heparin for now (2) Hypertension: (3) Sinus pause: Likely secondary to additional beta-blockers and postconversion pause, no recurrence on telemetry Subjective Patient seen and examined, chart, medications, telemetry reviewed. No issues overnight overall feels well. Denies chest pains, tachypalpitations, syncope or near syncope. Telemetry reveals no arrhythmias or pauses. She rem ains in sinus rhythm. Patient's ambulatory in the room without difficulty. Addendum patient lapsed back into atrial fibrillation this afternoon. Rates elevated 130s 140s but relatively asymptomatic. Single dose of metoprolol succinate 25 mg p.o. given with slowing of heart rate Physical Exam Constitutional: WD/WN, vitals as above + obese Eyes: PERRL, conjunctivae normal, anicteric sclerae ENMT: external ear and nose normal, oropharynx normal Neck: trachea midline, no thyromegaly Respiratory: normal respiratory effort, lungs clear to auscultation Cardiovascular: Rate/Rhythm: regular rate and regular rhythm Heart Sounds: normal S1 and normal S2; no gallop and no murmur Palpation: normal PMI Vessels: normal carotid upstroke and radial pulses present; no JVD and no carotid bruit Extremities: no edema Gastrointestinal (Abdomen): normal bowel sounds, soft, nontender, no hepatosplenomegaly Musculoskeletal: no cyanosis or clubbing, extremities motor strength 5/5 Skin: no rashes, warm and dry Neurologic: PERRL, EOMI, accommodation nl, no face palsy, no dysarthria Psychiatric: A+Ox3, euthymic affect Results & Data Vital Signs (Past 12 Hours) Vital Signs Temp Pulse Pulse Resp BP Pulse Ox 07/15/19 15:29 36.7 C 69 18 129/71 93 07/15/19 11:57 36.9 C 71 18 130/73 90 07/15/19 11:00 75 07/15/19 07:34 36.6 C 93 H 20 150/76 H 85 L 07/15/19 07:00 84
[2019-07-15] MEDS ORDERED: WARFARIN SOD 5 MG TAB PO SCH (16:00)
[2019-07-15] MEDS ORDERED: METOPROLOL SUCC 25MG EXT REL TAB PO SCH (16:15)
[2019-07-15] MEDS ORDERED: METOPROLOL SUCC 50MG EXT REL TAB PO STA (18:13)
[2019-07-15] MEDS ORDERED: METOPROLOL TARTRATE 1 MG/ML VIAL IV STA (18:13)
[2019-07-15] MEDS ORDERED: METOPROLOL SUCC 25MG EXT REL TAB PO ONE (20:03)
[2019-07-16] MEDS: WARFARIN SOD 5 MG TAB PO SCH (01:20)
[2019-07-16] MEDS: HEPARIN SODIUM/DEXTROSE 25,000 UNITS/500 ML BAG IV SCH ×2 (01:36→19:02)
[2019-07-16 06:01] LABS: Partial Thromboplastin Ratio 1.8
[2019-07-16 06:07] LABS: BUN Creatinine Ratio 14.2 (10-20); Calcium 8.5 mg/dl (8.5-10.1); Creatinine Clr Calc Pharmacy 58.9 ml/min; Est GFR (African American) 70.4; Est GFR (Non-African American) 60.8
[2019-07-16 06:08] LABS: Hematocrit (blood only) 41.8 % (37-47); Hemoglobin 13.8 g/dL (12.0-16.0); Mean Corpuscular Hemoglobin 31.8 pg (25-34); Mean Corpuscular Volume 96.3 fL (80-100); Mean Platelet Volume 10.1 fL (7.4-10.4); Platelet Count 190 K/uL (130-400); RDW Coefficient of Variation 13.9 % (11.5-14.5); RDW Standard Deviation 49.1 fL (36.4-46.3); Red Blood Count 4.34 M/uL (4.2-5.4); White Blood Count 7.58 K/uL (4.8-10.8)
[2019-07-16 06:14] LABS: Partial Thromboplastin Time 48.7 Seconds (21.0-31.0)
[2019-07-16] MEDS ORDERED: APIXABAN 2.5 MG TAB PO SCH (07:00)
--- NOTE | 2019-07-16 07:56 | Hospitalist Progress Note ---
Date of Service July 16, 2019 Assessment & Plan (1) New onset atrial fibrillation: -Back in NSR--->back to AFIB RVR yesterday in 130-150s -Patient sent to the ED from [facility] endoscopy clinic for evaluation of atrial fibrillation with RVR that developed during routine colonoscopy -Patient received metoprolol 2.5 mg IV with improvement in heart rate; heart rate currently 90s to low 100s -A. fib may have been triggered by some mild dehydration from colonoscopy prep (will hold home Lasix and give gentle IVF) or anesthesia -At home, patient takes metoprolol succinate 100 mg daily (has not missed any doses); will give an additional 50 mg tonight and start 75 mg twice daily tomorrow -[id number] score 4; will start IV heparin with Coumadin bridge -Serial cardiac enzymes, resting echo -Cardiology on case-Eliquis on DC (2) Hypertension: -BP controlled -Metoprolol -Continue losartan and amlodipine (3) Dyslipidemia: -Continue statin (4) DVT prophylaxis: Continue IV heparin with Eliquis on DC Went Back into AFIB just prior to DC 07/15 Cards to see today Metoprolol increased back 100 mg Daily (Her Pre hospital dose) Labs checked ROS-No Headache, No Visual Changes, No Nausea, No Vomiting, No Fever, No Chills, No Neck Pain or Stiffness, No Chest Pain, No Palpitations, No SOB, No PONCE, No Cough, No Sputum, No Wheezing, No Abdominal Pain, No Diarrhea, No Hematemesis, No Hemoptysis, No Unexpected Weight Loss, No Flank pain, No Melena, No Hematochezia, No Frequency, No Urgency, No Burning, No Hematuria, No Rashes, No Diaphoresis. Appetite is Normal Physical Exam Gen-AAO x 3, NAD, Afebrile Head-NCAT, EOMI, PERRLA, Anicteric Sclera, No Posterior Pharyngeal Erythema Neck-Supple, No JVD, No Thyromegaly, No Masses, No LAD, No Bruits Lungs-Clear to Auscultation Bilaterally, No Rales, No Rhonchi, No Wheezing, No Crepitus Chest-Irreg/IrregNo S4, +S1, +S2, No S3, No Murmurs, No Rubs, No Gallops, No Ectopy Abdomen-Soft, Bowel Sounds Present, Non Tender, Non Distended, No Hepatomegaly, No Splenomegaly, No Palpable Masses, No Rebound, No Rigidity, No Guarding Musculoskeletal-Full Range of Motion Bilaterally, No CVAT Extremities-No Cyanosis, No Clubbing, No Edema Nuero-Cranial Nerves II-XII grossly intact, Motor WNL, DTRs WNL, Strength WNL, Non Focal Psych-Normal Mood Results & Data Vital Signs (Past 12 Hours) Vital Signs Temp Pulse Resp BP Pulse Ox 07/16/19 03:49 36.8 C 83 20 143/84 H 92 07/15/19 23:14 37.3 C 103 H 20 109/70 93
[2019-07-16] MEDS: LOSARTAN POTASSIUM 50 MG TAB PO SCH (08:47)
[2019-07-16] MEDS: METOPROLOL TARTRATE 100 MG TAB PO SCH (08:47)
[2019-07-16] MEDS: AMLODIPINE BESYLATE 5 MG TAB PO SCH (08:47)
[2019-07-16] MEDS: ATORVASTATIN 20 MG TAB PO SCH (08:47)
--- NOTE | 2019-07-16 12:55 | Cardiology Progress Note ---
Date of Service July 16, 2019 Assessment & Plan (1) New onset atrial fibrillation: Patient presented with new onset atrial fibrillation occurring during recent outpatient procedure following colonoscopy prep. Patient relatively asymptomatic not aware of tachycardia palpitation or associated complaints. Notes no prior history of arrhythmias per her description she does carry an elevated chads vas 2 score of at least 4. Patient spontaneously converted to sinus rhythm but once again lapsed back into atrial fibrillation. Remains in intrafibrillation currently. No further pauses Will continue metoprolol. She received 100 mg metoprolol tartrate this morning. Usually takes 100 mg metoprolol succinate at home agree with shorter acting usage given recent pauses Patient returns to sinus rhythm spontaneously again would likely initiate sotalol therapy Anticipate transition to Eliquis on discharge (2) Hypertension: (3) Sinus pause: Likely secondary to additional beta-blockers and postconversion pause, no recurrence on telemetry Subjective Patient remains in atrial fibrillation this morning heart rates now better controlled after dose of metoprolol tartrate 100 mg p.o. daily Anticoagulation continue with heparin Patient completely asymptomatic Physical Exam Constitutional: WD/WN, vitals as above + obese Eyes: PERRL, conjunctivae normal, anicteric sclerae ENMT: external ear and nose normal, oropharynx normal Neck: trachea midline, no thyromegaly Respiratory: normal respiratory effort, lungs clear to auscultation Cardiovascular: Rate/Rhythm: regular rate and regular rhythm Heart Sounds: normal S1 and normal S2; no gallop and no murmur Palpation: normal PMI Vessels: normal carotid upstroke and radial pulses present; no JVD and no carotid bruit Extremities: no edema Gastrointestinal (Abdomen): normal bowel sounds, soft, nontender, no hepatosplenomegaly Musculoskeletal: no cyanosis or clubbing, extremities motor strength 5/5 Skin: no rashes, warm and dry Neurologic: PERRL, EOMI, accommodation nl, no face palsy, no dysarthria Psychiatric: A+Ox3, euthymic affect Results & Data Vital Signs (Past 12 Hours) Vital Signs Temp Pulse Resp BP Pulse Ox 07/16/19 11:39 36.5 C 75 20 115/64 90 07/16/19 08:08 36.9 C 82 16 137/83 91 07/16/19 03:49 36.8 C 83 20 143/84 H 92
[2019-07-17 06:07] LABS: Hematocrit (blood only) 44.2 % (37-47); Hemoglobin 14.4 g/dL (12.0-16.0); Mean Corpuscular Hemoglobin 31.6 pg (25-34); Mean Corpuscular Hgb Conc 32.6 g/dL (32-36); Mean Corpuscular Volume 96.9 fL (80-100); Mean Platelet Volume 10.1 fL (7.4-10.4); Platelet Count 171 K/uL (130-400); RDW Standard Deviation 49.6 fL (36.4-46.3); Red Blood Count 4.56 M/uL (4.2-5.4); White Blood Count 6.41 K/uL (4.8-10.8)
[2019-07-17 06:20] LABS: Partial Thromboplastin Ratio 1.6; Partial Thromboplastin Time 43.6 Seconds (21.0-31.0)
[2019-07-17 06:38] LABS: BUN Creatinine Ratio 14.6 (10-20); Calcium 9.3 mg/dl (8.5-10.1); Creatinine Clr Calc Pharmacy 60.6 ml/min; Est GFR (African American) 73.4; Est GFR (Non-African American) 63.4; Potassium 4.2 mmol/L (3.5-5.1)
--- NOTE | 2019-07-17 07:08 | Hospitalist Progress Note ---
Date of Service July 17, 2019 Assessment & Plan (1) New onset atrial fibrillation: -Back in NSR--->back to AFIB RVR 07/15 in 130-150s -Patient sent to the ED from [facility] endoscopy clinic for evaluation of atrial fibrillation with RVR that developed during routine colonoscopy -Patient received metoprolol 2.5 mg IV with improvement in heart rate; heart rate currently 90s to low 100s -A. fib may have been triggered by some mild dehydration from colonoscopy prep (will hold home Lasix and give gentle IVF) or anesthesia -At home, patient takes metoprolol succinate 100 mg daily (has not missed any doses); will give an additional 50 mg tonight and start 75 mg twice daily tomorrow -[id number] score 4; will start IV heparin with Coumadin bridge -Serial cardiac enzymes, resting echo -Cardiology on case-Eliquis on DC, DC today (2) Hypertension: -BP controlled -Metoprolol -Continue losartan and amlodipine (3) Dyslipidemia: -Continue statin (4) DVT prophylaxis: Continue IV heparin with Eliquis on DC Went Back into AFIB just prior to DC 07/15 Cards to see today Metoprolol increased back 100 mg Daily (Her Pre hospital dose) Labs checked ROS-No Headache, No Visual Changes, No Nausea, No Vomiting, No Fever, No Chills, No Neck Pain or Stiffness, No Chest Pain, No Palpitations, No SOB, No PONCE, No Cough, No Sputum, No Wheezing, No Abdominal Pain, No Diarrhea, No Hematemesis, No Hemoptysis, No Unexpected Weight Loss, No Flank pain, No Melena, No Hematochezia, No Frequency, No Urgency, No Burning, No Hematuria, No Rashes, No Diaphoresis. Appetite is Normal Physical Exam Gen-AAO x 3, NAD, Afebrile Head-NCAT, EOMI, PERRLA, Anicteric Sclera, No Posterior Pharyngeal Erythema Neck-Supple, No JVD, No Thyromegaly, No Masses, No LAD, No Bruits Lungs-Clear to Auscultation Bilaterally, No Rales, No Rhonchi, No Wheezing, No Crepitus Chest-Irreg/IrregNo S4, +S1, +S2, No S3, No Murmurs, No Rubs, No Gallops, No Ectopy Abdomen-Soft, Bowel Sounds Present, Non Tender, Non Distended, No Hepatomegaly, No Splenomegaly, No Palpable Masses, No Rebound, No Rigidity, No Guarding Musculoskeletal-Full Range of Motion Bilaterally, No CVAT Extremities-No Cyanosis, No Clubbing, No Edema Nuero-Cranial Nerves II-XII grossly intact, Motor WNL, DTRs WNL, Strength WNL, Non Focal Psych-Normal Mood Results & Data Vital Signs (Past 12 Hours) Vital Signs Temp Pulse Pulse Resp BP BP Pulse Ox 07/17/19 04:06 36.5 C 84 20 130/76 91 07/16/19 23:25 36.7 C 89 21 136/86 93 07/16/19 19:49 36.6 C 85 19 136/78 93
[2019-07-17 07:51] VITALS: TEMP 98.6; O2SAT 90
[2019-07-17] MEDS ORDERED: APIXABAN 5 MG TABLET PO SCH (08:00)
[2019-07-17] MEDS: METOPROLOL TARTRATE 100 MG TAB PO SCH (08:09)
[2019-07-17] MEDS: LOSARTAN POTASSIUM 50 MG TAB PO SCH (08:10)
[2019-07-17] MEDS: ATORVASTATIN 20 MG TAB PO SCH (08:10)
[2019-07-17] MEDS: AMLODIPINE BESYLATE 5 MG TAB PO SCH (08:10)
--- NOTE | 2019-07-17 10:03 | Cardiology Progress Note ---
Date of Service July 17, 2019 Assessment & Plan (1) New onset atrial fibrillation: Patient presented with new onset atrial fibrillation occurring during recent outpatient procedure following colonoscopy prep. Patient relatively asymptomatic not aware of tachycardia palpitation or associated complaints. Notes no prior history of arrhythmias per her description she does carry an elevated chads vas 2 score of at least 4. Patient spontaneously converted to sinus rhythm but once again lapsed back into atrial fibrillation. Remains in intrafibrillation currently. No further pauses Will continue metoprolol. She received 100 mg metoprolol tartrate this morning. Usually takes 100 mg metoprolol succinate at home agree with shorter acting usage given recent pauses Patient stable for discharge on usual dose of metoprolol and anticoagulation with Eliquis. Will arrange for cardiology follow-up likely event monitor given transient pause in hospital (2) Hypertension: (3) Sinus pause: Likely secondary to additional beta-blockers and postconversion pause, no recurrence on telemetry Subjective No complaints overnight remains in atrial fibrillation without pauses or bradycardia arrhythmias Physical Exam Constitutional: WD/WN, vitals as above + obese Eyes: PERRL, conjunctivae normal, anicteric sclerae ENMT: external ear and nose normal, oropharynx normal Neck: trachea midline, no thyromegaly Respiratory: normal respiratory effort, lungs clear to auscultation Cardiovascular: Rate/Rhythm: + irregularly irregular Heart Sounds: normal S1 and normal S2; no gallop and no murmur Palpation: normal PMI Vessels: normal carotid upstroke and radial pulses present; no JVD and no carotid bruit Extremities: no edema Gastrointestinal (Abdomen): normal bowel sounds, soft, nontender, no hepatosplenomegaly Musculoskeletal: no cyanosis or clubbing, extremities motor strength 5/5 Skin: no rashes, warm and dry Neurologic: PERRL, EOMI, accommodation nl, no face palsy, no dysarthria Psychiatric: A+Ox3, euthymic affect Results & Data Vital Signs (Past 12 Hours) Vital Signs Temp Pulse Pulse Resp BP BP Pulse Ox 07/17/19 07:50 37.0 C 89 17 160/83 H 90 07/17/19 04:06 36.5 C 84 20 130/76 91 07/16/19 23:25 36.7 C 89 21 136/86 93
[2019-07-17 10:36] VITALS: BP 130/76; PULSE 99
== END 2019-07-17 11:20 | disposition home or self-care (01) | DRG 310 ==
LOC: ED 14:08 → 2S 16:58